=== PATIENT | female | born 1995 | race African-American/Black ===

== ENCOUNTER 2017-08-08 16:54 | Emergency (ER) | payer SELFPAY ==
[2017-08-08 17:33] LABS: BASOPHILS 0.1 % (0-2); EOSINOPHILS 0.4 % (0-7); HEMATOCRIT 31.4 % (36.0-48.0); HEMOGLOBIN 9.3 g/dL (12-16); IMMATURE GRANULOCYTES 0.1 % (0-5); LYMPHOCYTES 26.6 % (15-50); MCH 21.4 pg (26.0-34.0); MCHC 29.6 g/dL (31.0-37.0); MCV 72.2 fL (80.0-100.0); MEAN PLATELET VOLUME 9.8 fL (7.4-10.4); MONOCYTES 6.3 % (2-11); NEUTROPHILS 66.5 % (40-80); PLATELET COUNT 330 10x3/uL (130-400); RBC 4.35 10x6/uL (4.00-5.40); RDW 20.1 % (11.5-14.5); WBC 8.1 10x3/uL (4.8-10.8)
[2017-08-08 17:44] LABS: HCG SERUM NEGATIVE (NEGATIVE)
[2017-08-08 18:15] LABS: APPEARANCE CLEAR (CLEAR); BILIRUBIN NEGATIVE (NEGATIVE); COLOR YELLOW (YELLOW); GLUCOSE NEGATIVE (NEGATIVE); KETONE LARGE mg/dL (NEGATIVE); NITRITE NEGATIVE (NEGATIVE); PROTEIN NEGATIVE (NEGATIVE); UROBILINOGEN NORMAL (NORMAL)
[2017-08-08 18:18] LABS: BACTERIA MODERATE /hpf (NONE SEEN); EPITHELIAL CELLS 0-5 /hpf (0-5)
[2017-08-08 18:19] LABS: MUCUS >1+ /lpf (NONE SEEN)
== END 2017-08-08 18:47 | disposition home or self-care (01) ==
LOC: D.ER → EDBD 16:54 → D.ER 16:54
PROVIDERS: Family Medicine; Nurse Practitioner Acute Care
DX: N94.6 Dysmenorrhea, unspecified (principal); N39.0 Urinary tract infection, site not specified; F17.200 Nicotine dependence, unspecified, uncomplicated